=== PATIENT | male | born 1995 | race African-American/Black ===

== ENCOUNTER 2019-10-02 07:51 | Emergency (ER) | payer SELFPAY ==
[~2019-10-02] VITALS: Ht 177.8 cm; Wt 91.0 kg
[2019-10-02] MEDS ORDERED: DEXAMETHASONE 10 MG/ML VIAL IM ONE (11:00)
[2019-10-02] MEDS ORDERED: KETOROLAC 30MG/ML VIAL IM ONE (11:00)
[2019-10-02 11:23] VITALS: BP 112/60
== END 2019-10-02 11:26 | disposition home or self-care (01) ==
LOC: ER 07:51
DX: K12.2 Cellulitis and abscess of mouth (principal); J02.9 Acute pharyngitis, unspecified
CPT/HCPCS: 96372; 99283; J1100; J1885